=== PATIENT | male | born 1930 | race Caucasian/White ===

== ENCOUNTER → 2017-11-08 | Outpatient (REF) | LOC: ZLAB.WCH 15:59 | DX: Z01.89 Encounter for other specified special examinations (principal) ==

== ENCOUNTER 2018-04-28 07:50 | Day surgery (SDC) | payer MEDICARE ==
[~2018-04-28] VITALS: Ht 182.9 cm; Wt 86.4 kg
[2018-04-28 08:03] VITALS: BP 125/60; PULSE 72; TEMP 97.4
[2018-04-28] MEDS ORDERED: TYLENOL PM EXTR1 TA1 PO (08:11)
[2018-04-28] MEDS ORDERED: PROAIR HFA0.09 MG/AC IH (08:11)
[2018-04-28] MEDS ORDERED: CALCIUM 600/VIT1 CAP PO (08:12)
[2018-04-28] MEDS ORDERED: ASPIRIN E.C. 8181 MG PO (08:12)
[2018-04-28] MEDS ORDERED: ZYRTEC 10MG10 MG PO (08:13)
[2018-04-28] MEDS ORDERED: PLAVIX 75MG TAB75 MG PO (08:13)
[2018-04-28] MEDS ORDERED: PEPCID 20MG TAB20 MG PO (08:14)
[2018-04-28] MEDS ORDERED: EPA FISH OIL1 SGL PO (08:15)
[2018-04-28] MEDS ORDERED: LASIX 80MG TABL80 MG PO (08:18)
[2018-04-28] MEDS ORDERED: GLUCOTROL XL2.5 MG PO (08:18)
[2018-04-28] MEDS ORDERED: SYNTHROID0.125 MG/T PO (08:19)
[2018-04-28] MEDS ORDERED: KLOR-CON M2020 MEQ PO (08:19)
[2018-04-28] MEDS ORDERED: PRINIVIL2.5 MG PO (08:20)
[2018-04-28] MEDS ORDERED: TOPROL XL 50MG50 MG PO (08:21)
[2018-04-28] MEDS ORDERED: SINGULAIR 110 MG/TAB PO (08:22)
[2018-04-28] MEDS ORDERED: NITROSTAT0.4 MG/TAB SL (08:23)
[2018-04-28] MEDS ORDERED: ULTRAM 50MG TAB50 MG PO (08:24)
[2018-04-28] MEDS ORDERED: ALDACTONE 25MG25 M1 PO (08:24)
[2018-04-28] MEDS ORDERED: OCUVITE1 TA1 PO (08:25)
[2018-04-28] MEDS ORDERED: PRAVACHOL10 MG PO (08:26)
[2018-04-28 10:13] VITALS: BP 115/58; PULSE 64; TEMP 97.1
[2018-04-28 10:15] VITALS: BP 135/65; PULSE 69
[2018-04-28 10:30] VITALS: BP 132/55; PULSE 65
[2018-04-28] MEDS ORDERED: NORCO 325 MG-51 TAB PO (10:39)
[2018-04-28 10:45] VITALS: BP 151/52; PULSE 60
== END 2018-04-28 11:19 | disposition home or self-care (01) ==
LOC: SDCO 07:50
DX: K40.90 Unilateral inguinal hernia, without obstruction or gangrene, not specified as recurrent (principal); I35.0 Nonrheumatic aortic (valve) stenosis; N40.0 Benign prostatic hyperplasia without lower urinary tract symptoms; E78.5 Hyperlipidemia, unspecified; I11.0 Hypertensive heart disease with heart failure; I50.9 Heart failure, unspecified; G47.33 Obstructive sleep apnea (adult) (pediatric); J45.909 Unspecified asthma, uncomplicated; I25.10 Atherosclerotic heart disease of native coronary artery without angina pectoris; Z83.3 Family history of diabetes mellitus; Z90.49 Acquired absence of other specified parts of digestive tract; Z95.5 Presence of coronary angioplasty implant and graft; Z88.5 Allergy status to narcotic agent; Z91.012 Allergy to eggs; Z91.018 Allergy to other foods; Z79.84 Long term (current) use of oral hypoglycemic drugs; Z79.02 Long term (current) use of antithrombotics/antiplatelets
CPT/HCPCS: C1781; J0690; J1885; J2405; J2704; J3010; J7030